=== PATIENT | male | born 1950 ===

== ENCOUNTER 2018-08-10 18:27 | Emergency (ER) | payer MEDICARE ==
[~2018-08-10] VITALS: Ht 175.3 cm; Wt 105.2 kg
[~2018-08-10 18:27] MED LIST: ENAL20 PO; HYDCHL12.5 PO; Hair, Skin & N1 EACH PO; PANT40 PO
[2018-08-10] MEDS ORDERED: AMLO10 (18:49)
[2018-08-10 18:54] LABS: Source, Urine Clean Catch
[2018-08-10 18:58] LABS: BASOPHILS ABSOLUTE AUTO 0.04 K/mm3 (0.00-0.23); BASOPHILS PERCENT AUTO 1 % (0-2); EOSINOPHILS PERCENT AUTO 5 % (0-6); Hematocrit 44.8 % (37.0-53.0); Hemoglobin 15.4 g/dL (13.5-17.5); IMMATURE GRAN ABSOLUTE AUTO 0.02 K/mm3 (0.00-0.10); IMMATURE GRAN PERCENT AUTO 0 % (0-1); LYMPHOCYTES PERCENT AUTO 26 % (21-46); MONOCYTES ABSOLUTE AUTO 0.79 K/mm3 (0.16-1.47); MONOCYTES PERCENT AUTO 10 % (4-13); Mean Corpuscular HGB 32.4 pg (26.0-34.0); Mean Corpuscular HGB Conc 34.4 g/dL (31.5-36.5); Mean Corpuscular Volume 94 fL (80-100); Mean Platelet Volume 9.4 fL (9.1-12.4); NEUTROPHILS ABSOLUTE AUTO 4.89 K/mm3 (1.96-9.15); NEUTROPHILS PERCENT AUTO 59 % (41-73); Platelet Count 297 K/mm3 (150-400); RDW Coefficient Variation 13.2 % (11.7-14.2); RDW Standard Deviation 45.7 fL (35.1-46.3); Red Blood Cell Count 4.76 M/mm3 (4.30-5.90); White Blood Cell Count 8.34 K/mm3 (4.00-11.30)
[2018-08-10 18:58] LABS: Bilirubin, Urine Neg (Neg); Blood, Urine Neg (Neg); Glucose Qualitative, Urine Neg (Neg); Ketones, Urine Neg (Neg); Leukocyte Esterase, Urine Neg (Neg); Nitrite, Urine Neg (Neg); Protein, Urine Neg (Neg); Urobilinogen, Urine NORM (Normal); pH, Urine 6.5 (5.0-8.0)
[2018-08-10 19:00] LABS: Appearance, Urine Clear (Clear); Color, Urine Yellow (P-Yellow)
[2018-08-10 19:25] LABS: Alanine Aminotransfer (ALT/SGP 34 U/L (12-78); Albumin, Blood 3.7 g/dL (3.4-5.0); Albumin/Globulin Ratio 1.2 (0.8-1.8); Alk Phos 91 U/L (50-136); Anion Gap 6 mmol/L (6-16); Aspartate Aminotrans (AST/SGOT 25 U/L (12-37); Bilirubin, Total 0.8 mg/dL (0.1-1.0); Blood Urea Nitrogen 17 mg/dL (8-24); CO2, Blood 27 mmol/L (21-32); Calcium, Blood 8.5 mg/dL (8.5-10.1); Chloride, Blood 104 mmol/L (98-108); Creatinine, Blood 1.21 mg/dL (0.60-1.20); Globulin, Blood 3.2 g/dL (2.2-4.0); Glomerular Filtration Rate >60 (60-); Glucose, Blood 98 mg/dL (70-99); Potassium, Blood 3.4 mmol/L (3.5-5.5); Sodium, Blood 137 mmol/L (136-145); Total Protein, Blood 6.9 g/dL (6.4-8.2)
[2018-08-10] MEDS ORDERED: Percocet 5-3251 EACH PO (21:08)
[2018-08-10] MEDS ORDERED: ONDA4ODT MM (21:08)
== END 2018-08-10 21:31 | disposition home or self-care (01) ==
LOC: ER 18:27
PROVIDERS: Physician Assistant
DX: N13.2 Hydronephrosis with renal and ureteral calculous obstruction (principal); Z79.899 Other long term (current) drug therapy; I10 Essential (primary) hypertension; E78.5 Hyperlipidemia, unspecified
CPT/HCPCS: 36415; 74176; 80053; 81003; 83690; 85025; 96361; 96374; 96375; 96376; 99284-25; A9270-GY; J1170; J1885; J2405; J7030

== ENCOUNTER 2020-01-06 06:59 | Day surgery (SDC) | payer MEDICARE, OTHER ==
[~2020-01-06] VITALS: Ht 170.2 cm; Wt 108.7 kg
[~2020-01-06 06:59] MED LIST changes: +AMLO10; +GLUC500 PO; +MELO7.5 PO; +ONDA4ODT MM; +Percocet 5-3251 EACH PO
--- NOTE | 2020-01-06 07:55 | NUR ---
Ambulatory in Day Surgery. Patient states colon prep results clear. History, Chart, Medications and Allergies reviewed before start of procedure. Lungs clear T/O to Auscultation. Patient confirms NPO status and agrees with scheduled surgery. Patient States Post-Procedure ride home has been arranged.
--- NOTE | 2020-01-06 08:21 | NUR ---
01/06/20 0821 Jose David Jordan 3-LEAD EKG REVIEWED WITH PHYSICIAN PRIOR TO START OF PROCEDURE.Patient to ENDO 1History, Chart, Medications and Allergies reviewed before start of procedure.MONITOR INTACT WITH CONTINUOUS PULSE OXIMETRY AND INTERMITTENT BP.O2 VIA N/C INTACT THROUGHOUT SEDATION/PROCEDURE.
--- NOTE | 2020-01-06 08:56 | NUR ---
Discharge instructions reviewed with patient. Patient verbalizes understanding. Copy given to patient to take home. Patient States Post-Procedure ride home has been arranged. Discharged via wheelchair to private car for ride home.
== END 2020-01-06 08:59 | disposition home or self-care (01) ==
LOC: ORSCMMR 06:59 → ORD 08:00 → ORSCMMR 08:59
PROVIDERS: Internal Medicine Gastroenterology
PROC: 0DJD8ZZ Inspection of Lower Intestinal Tract, Via Natural or Artificial Opening Endoscopic (ICD-10-PCS; principal; 2020-01-06 08:00)
DX: Z12.11 Encounter for screening for malignant neoplasm of colon (principal); Z86.010 Personal history of colon polyps; G47.30 Sleep apnea, unspecified; I10 Essential (primary) hypertension; E78.00 Pure hypercholesterolemia, unspecified; Z79.899 Other long term (current) drug therapy
CPT/HCPCS: J2250; J3010; J7120

== ENCOUNTER 2020-03-18 05:34 | Day surgery (SDC) | payer MEDICARE, OTHER ==
[~2020-03-18] VITALS: Ht 175.3 cm; Wt 114.0 kg
[~2020-03-18 05:34] MED LIST changes: -AMLO10; +AMLO10 PO; +Aspir 8181 MG PO; +OMEP20ER PO; +TADA10TA PO
[2020-03-18] MEDS ORDERED: VITAMIN D310 MC4 PO (06:24)
--- NOTE | 2020-03-18 07:44 | NUR ---
PT BACK TO RECOVERY ROOM POST PROCEDURE. MULTI VESSEL DISEASE FOUND DURING ANGIOGRAM, PT WILL BE REFERED FOR BYPASS SURGERY. SIFE AT BEDSIDE.
--- NOTE | 2020-03-18 08:34 | NUR ---
PT EATING BREAKFAST IN NO DISTRESS. PT AND SPOUSE STATE THAT THEY HAVE DECIDED ON [facility] FOR THE BYPASS SURGERY. DR BE NOTIFIED OF PT DECISION, WILL SET UP REFERRAL FOR BYPASS PROCEDURE.
--- NOTE | 2020-03-18 08:50 | NUR ---
AFTER A TOTAL OF 6 CC'S AIR HAVE BEEN REMOVED FROM TR BAND, SITE BEGAN TO BLEED. ADDITIONAL 4 CC AIR BACK IN BAND TO OBTAIN HEMOSTASIS. PT DENIES ANY DISCOMFORT TO SITE. VSS, SPOUSE REMAINS AT BEDSIDE. CALL LIGHT IN REACH
--- NOTE | 2020-03-18 09:45 | NUR ---
TR BAND HAS BEEN FULLY DEFLATED, NO CURRENT BLEEDING OR SWELLING NOTED. WILL CONTINUE TO MONITOR FOR BLEEDING UNTIL PT IS DC'D HOME.
--- NOTE | 2020-03-18 10:20 | NUR ---
IV DC'D, CATH INTACT. PT AND SPOUSE VERBALIZED UNDERSTANDING OF DC INSTRUCTIONS AND FOLLOW UP INFORMATION. RIGHT RADIAL SITE CLEAN, DRY, INTACT, WITHOUT SWELLING OR BLEEDING AT TIME OF DISCHARGE. PT OUT TO CAR VIA WHEELCHAIR.
== END 2020-03-18 12:21 | disposition home or self-care (01) ==
LOC: MHTC 05:34
PROC: 4A023N7 Measurement of Cardiac Sampling and Pressure, Left Heart, Percutaneous Approach (ICD-10-PCS; principal; 2020-03-18)
PROC: B2111ZZ Fluoroscopy of Multiple Coronary Arteries using Low Osmolar Contrast (ICD-10-PCS; principal; 2020-03-18)
DX: I25.119 Atherosclerotic heart disease of native coronary artery with unspecified angina pectoris (principal); I10 Essential (primary) hypertension; E78.5 Hyperlipidemia, unspecified; G47.33 Obstructive sleep apnea (adult) (pediatric); G89.29 Other chronic pain; M54.9 Dorsalgia, unspecified; M54.2 Cervicalgia; M17.12 Unilateral primary osteoarthritis, left knee; E66.01 Morbid (severe) obesity due to excess calories; Z68.36 Body mass index [BMI] 36.0-36.9, adult; Z79.82 Long term (current) use of aspirin; Z79.899 Other long term (current) drug therapy
CPT/HCPCS: 93454; 99152; 99153; C1769; C1894; J1644; J2250; J3010; J7030; J7050; Q9967

== ENCOUNTER 2020-03-24 07:22 | Observation (INO) | payer MEDICARE, OTHER ==
[~2020-03-24] VITALS: Ht 170.2 cm; Wt 102.1 kg
[~2020-03-24 07:22] MED LIST changes: -AMLO10 PO; -Aspir 8181 MG PO; -HYDCHL12.5 PO; -MELO7.5 PO; -OMEP20ER PO; -TADA10TA PO; +VITAMIN D310 MC4 PO
[2020-03-24 07:52] LABS: BASOPHILS ABSOLUTE AUTO 0.03 K/mm3 (0.00-0.23); BASOPHILS PERCENT AUTO 0 % (0-2); EOSINOPHILS ABSOLUTE AUTO 0.21 K/mm3 (0.00-0.68); EOSINOPHILS PERCENT AUTO 3 % (0-6); Hematocrit 45.5 % (37.0-53.0); Hemoglobin 15.7 g/dL (13.5-17.5); IMMATURE GRAN ABSOLUTE AUTO 0.02 K/mm3 (0.00-0.10); IMMATURE GRAN PERCENT AUTO 0 % (0-1); LYMPHOCYTES ABSOLUTE AUTO 1.22 K/mm3 (0.84-5.20); LYMPHOCYTES PERCENT AUTO 16 % (21-46); MONOCYTES ABSOLUTE AUTO 0.66 K/mm3 (0.16-1.47); MONOCYTES PERCENT AUTO 9 % (4-13); Mean Corpuscular HGB 31.5 pg (26.0-34.0); Mean Corpuscular HGB Conc 34.5 g/dL (31.5-36.5); Mean Corpuscular Volume 91 fL (80-100); Mean Platelet Volume 9.8 fL (9.1-12.4); NEUTROPHILS ABSOLUTE AUTO 5.64 K/mm3 (1.96-9.15); NEUTROPHILS PERCENT AUTO 72 % (41-73); Platelet Count 254 K/mm3 (150-400); RDW Coefficient Variation 13.1 % (11.7-14.2); RDW Standard Deviation 43.8 fL (35.1-46.3); Red Blood Cell Count 4.98 M/mm3 (4.30-5.90); White Blood Cell Count 7.78 K/mm3 (4.00-11.30)
[2020-03-24 08:13] LABS: Alanine Aminotransfer (ALT/SGP 25 U/L (12-78); Albumin, Blood 3.8 g/dL (3.4-5.0); Albumin/Globulin Ratio 1.2 (0.8-1.8); Alk Phos 88 U/L (50-136); Anion Gap 5 mmol/L (6-16); Aspartate Aminotrans (AST/SGOT 14 U/L (12-37); Bilirubin, Total 1.3 mg/dL (0.1-1.0); Blood Urea Nitrogen 12 mg/dL (8-24); Bun/Creatinine Ratio 11.2 (12.0-20.0); CO2, Blood 26 mmol/L (21-32); Calcium, Blood 8.4 mg/dL (8.5-10.1); Chloride, Blood 109 mmol/L (98-108); Creatinine, Blood 1.07 mg/dL (0.60-1.20); Globulin, Blood 3.3 g/dL (2.2-4.0); Glomerular Filtration Rate >60 (60-); Glucose, Blood 99 mg/dL (70-99); Potassium, Blood 3.8 mmol/L (3.5-5.5); Sodium, Blood 140 mmol/L (136-145); Total Protein, Blood 7.1 g/dL (6.4-8.2)
[2020-03-24 08:55] LABS: CHOL/HDL RATIO 3.4; Cholesterol 118 mg/dL (50-200); HDL Cholesterol 35 mg/dL (>39); LDL/HDL RATIO 1.9; Low Density Lipoprotein Chol 65 mg/dL (0-110); Triglycerides 91 mg/dL (30-160); Very Low Density Lipoprot Chol 18 mg/dL (6-32)
[2020-03-24] MEDS ORDERED: OMEP20ER PO (12:21)
[2020-03-24] MEDS ORDERED: MOBIC15 MG PO (12:21)
[2020-03-24] MEDS ORDERED: HYDCHL25 PO (12:21)
[2020-03-24] MEDS ORDERED: AMLO10 PO (12:21)
[2020-03-24] MEDS ORDERED: METO25ER PO (12:22)
[2020-03-24] MEDS ORDERED: ATOR40TA PO (12:22)
[2020-03-24] MEDS ORDERED: ASPI81CH PO (12:24)
[2020-03-24] MEDS ORDERED: TADALAFIL5 M1 PO (12:25)
[2020-03-24] MEDS ORDERED: [UNRECOGNIZED DRUG - CODE] (18:43)
[2020-03-24] MEDS ORDERED: LIVER REFRESH PO (18:51)
[2020-03-24] MEDS ORDERED: ASHWAGANDHA PO (18:53)
[2020-03-24] MEDS ORDERED: [UNRECOGNIZED DRUG - OTHER] PO (18:54)
[2020-03-24] MEDS ORDERED: COQ-10100 MG PO (18:55)
[2020-03-24] MEDS ORDERED: CURCUMIN PO (18:55)
[2020-03-24] MEDS ORDERED: HYALURONIC ACID PO (18:58)
[2020-03-24] MEDS ORDERED: VITAMIN D3 PO (18:59)
[2020-03-24] MEDS ORDERED: [UNRECOGNIZED DRUG - OTHER] PO (19:02)
[2020-03-24] MEDS ORDERED: GLUCOSAMINE-CH1 EAC7 PO (19:03)
[2020-03-24] MEDS ORDERED: OMEGA ESSENTIA240 ML PO (19:05)
[2020-03-25 06:18] LABS: Anion Gap 5 mmol/L (6-16); Blood Urea Nitrogen 14 mg/dL (8-24); CO2, Blood 28 mmol/L (21-32); Calcium, Blood 8.5 mg/dL (8.5-10.1); Chloride, Blood 107 mmol/L (98-108); Creatinine, Blood 1.17 mg/dL (0.60-1.20); Glomerular Filtration Rate >60 (60-); Glucose, Blood 90 mg/dL (70-99); Sodium, Blood 140 mmol/L (136-145)
[2020-03-25] MEDS ORDERED: Vitamin D2000 UNIT PO (16:42)
[2020-03-25] MEDS ORDERED: CLOP75 PO (16:43)
== END 2020-03-25 17:13 | disposition home or self-care (01) ==
LOC: ER 07:22 → MEDS 07:23 → ER 11:07 → MEDS 11:07 → ENPENDDIS 03-25 16:58 → MEDS 03-25 17:13
PROVIDERS: Emergency Medicine; Nurse Practitioner Acute Care; ADMIT Hospitalist
DX: I97.820 Postprocedural cerebrovascular infarction following cardiac surgery (principal); I63.119 Cerebral infarction due to embolism of unspecified vertebral artery; G81.91 Hemiplegia, unspecified affecting right dominant side; R13.10 Dysphagia, unspecified; R29.810 Facial weakness; I10 Essential (primary) hypertension; I25.10 Atherosclerotic heart disease of native coronary artery without angina pectoris; E78.5 Hyperlipidemia, unspecified; G47.33 Obstructive sleep apnea (adult) (pediatric); K21.9 Gastro-esophageal reflux disease without esophagitis; M19.90 Unspecified osteoarthritis, unspecified site; E66.01 Morbid (severe) obesity due to excess calories; Z68.35 Body mass index [BMI] 35.0-35.9, adult; Z98.1 Arthrodesis status; Z79.82 Long term (current) use of aspirin; Z79.02 Long term (current) use of antithrombotics/antiplatelets; Z79.899 Other long term (current) drug therapy; Z87.442 Personal history of urinary calculi; Z23 Encounter for immunization; Z20.828 Contact with and (suspected) exposure to other viral communicable diseases; Y83.8 Other surgical procedures as the cause of abnormal reaction of the patient, or of later complication, without mention of misadventure at the time of the procedure; Y71.0 Diagnostic and monitoring cardiovascular devices associated with adverse incidents
CPT/HCPCS: 36415; 70450; 70496; 70498; 70551; 80048; 80053; 80061; 82947; 83036; 85025; 92610; 93005; 93010; 93308; 93321; 94762; 97162; 99285-25; A9270-GY; J1650; J7030; Q2038; Q9967

== ENCOUNTER → 2022-04-16 | Outpatient (CLI) | payer MEDICARE, OTHER ==
[~2022-04-16] MED LIST changes: +AMLO10 PO; +ASHWAGANDHA PO; +ASPI81CH PO; +ATOR40TA PO; +CLOP75 PO; +COQ-10100 MG PO; +CURCUMIN PO; +GLUCOSAMINE-CH1 EAC7 PO; +HYALURONIC ACID PO; +HYDCHL25 PO; +LIVER REFRESH PO; +METO25ER PO; +MOBIC15 MG PO; +OMEGA ESSENTIA240 ML PO; +OMEP20ER PO; +TADALAFIL5 M1 PO; +VITAMIN D3 PO; +Vitamin D2000 UNIT PO; +[UNRECOGNIZED DRUG - CODE]; +[UNRECOGNIZED DRUG - OTHER] PO; +[UNRECOGNIZED DRUG - OTHER] PO
== END ==
LOC: LAB SHORT 12:06 → PLD 12:06
DX: D48.5 Neoplasm of uncertain behavior of skin (principal)
CPT/HCPCS: 88305

== ENCOUNTER 2023-01-06 02:43 | Emergency (ER) | payer MEDICARE, OTHER ==
[~2023-01-06] VITALS: Ht 172.7 cm; Wt 113.4 kg
[2023-01-06 03:56] LABS: BASOPHILS ABSOLUTE AUTO 0.04 K/mm3 (0.00-0.23); BASOPHILS PERCENT AUTO 0 % (0-2); EOSINOPHILS ABSOLUTE AUTO 0.33 K/mm3 (0.00-0.68); EOSINOPHILS PERCENT AUTO 3 % (0-6); Hematocrit 45.4 % (37.0-53.0); Hemoglobin 15.5 g/dL (13.5-17.5); IMMATURE GRAN ABSOLUTE AUTO 0.02 K/mm3 (0.00-0.10); IMMATURE GRAN PERCENT AUTO 0 % (0-1); LYMPHOCYTES ABSOLUTE AUTO 1.32 K/mm3 (0.84-5.20); LYMPHOCYTES PERCENT AUTO 13 % (21-46); MONOCYTES ABSOLUTE AUTO 1.21 K/mm3 (0.16-1.47); MONOCYTES PERCENT AUTO 12 % (4-13); Mean Corpuscular HGB 32.6 pg (26.0-34.0); Mean Corpuscular HGB Conc 34.1 g/dL (31.5-36.5); Mean Corpuscular Volume 96 fL (80-100); Mean Platelet Volume 10.1 fL (9.1-12.4); NEUTROPHILS ABSOLUTE AUTO 7.03 K/mm3 (1.96-9.15); NEUTROPHILS PERCENT AUTO 71 % (41-73); Platelet Count 206 K/mm3 (150-400); RDW Coefficient Variation 13.6 % (11.7-14.2); RDW Standard Deviation 48.1 fL (35.1-46.3); Red Blood Cell Count 4.75 M/mm3 (4.30-5.90); White Blood Cell Count 9.95 K/mm3 (4.00-11.30)
[2023-01-06 04:13] LABS: Albumin, Blood 3.4 g/dL (3.4-5.0); Albumin/Globulin Ratio 1.1 (0.8-1.8); Bun/Creatinine Ratio 15.2 (12.0-20.0); Creatinine, Blood 1.32 mg/dL (0.60-1.20); Globulin, Blood 3.1 g/dL (2.2-4.0); Potassium, Blood 4.4 mmol/L (3.5-5.5); Total Protein, Blood 6.5 g/dL (6.4-8.2)
[2023-01-06 06:06] LABS: Source, Urine Clean Catch
[2023-01-06 06:33] LABS: Appearance, Urine Clear (Clear); Bilirubin, Urine Neg (Neg); Blood, Urine 3+ (Neg); Color, Urine Yellow (P-Yellow); Glucose Qualitative, Urine Neg (Neg); Ketones, Urine Neg (Neg); Leukocyte Esterase, Urine Neg (Neg); Nitrite, Urine Neg (Neg); Protein, Urine Neg (Neg); Specific Gravity, Urine 1.015 (1.003-1.022); Urobilinogen, Urine NORM (Normal)
[2023-01-06 06:50] LABS: Amorphous Light (0-Heavy); Bacteria Rare /hpf; Mucus Light (0-Heavy); Squamous Epithelial Cells Few /hpf (Few); White Blood Cells, Urine 0-2 /hpf (0-5)
[2023-01-06] MEDS ORDERED: TAMS.4ER PO (07:36)
[2023-01-06] MEDS ORDERED: Percocet 5-3251 EACH PO (07:36)
[2023-01-06 08:00] VITALS: BP 158/86
== END 2023-01-06 08:07 | disposition home or self-care (01) ==
LOC: ER 02:43
PROVIDERS: Student in an Organized Health Care Education/Training Program
DX: N13.2 Hydronephrosis with renal and ureteral calculous obstruction (principal); I10 Essential (primary) hypertension; E78.5 Hyperlipidemia, unspecified; G47.30 Sleep apnea, unspecified; I25.10 Atherosclerotic heart disease of native coronary artery without angina pectoris
CPT/HCPCS: 74177; 80053; 81001; 85025; 96361; 96374-59; 99284-25; J1885; J7030; Q9967

== ENCOUNTER → 2023-01-09 | Outpatient (CLI) | payer MEDICARE, OTHER ==
[~2023-01-09] MED LIST changes: +TAMS.4ER PO
[2023-01-09 13:19] LABS: PSA, %Free 41.1 %; PSA, Free 0.432 ng/mL
== END ==
LOC: LAB 11:35 → LAB SHORT 11:35
PROVIDERS: Physician Assistant
DX: N40.0 Benign prostatic hyperplasia without lower urinary tract symptoms (principal)
CPT/HCPCS: 36415; 84153; 84154

== ENCOUNTER → 2023-05-07 | Outpatient (CLI) | payer MEDICARE, OTHER | LOC: PLD 09:54 → LAB SHORT 09:54 | DX: D48.5 Neoplasm of uncertain behavior of skin (principal) | CPT/HCPCS: 88305 ==

== ENCOUNTER → 2023-12-31 | Outpatient (CLI) | payer MEDICARE, OTHER | END | disposition home or self-care (01) | LOC: LAB SHORT 17:03 → LAB 17:03 | DX: L08.0 Pyoderma (principal) | CPT/HCPCS: 87070; 87186; 87205 ==

== ENCOUNTER 2025-03-31 09:06 | Day surgery (SDC) | payer MEDICARE, OTHER ==
[~2025-03-31] VITALS: Ht 172 cm; Wt 122.0 kg
[~2025-03-31 09:06] MED LIST changes: +LOSA25 PO
[2025-03-31 10:20] VITALS: BP 154/91
--- NOTE | 2025-03-31 10:34 | NUR ---
03/31/25 1034 Becca Umana History, Chart, Medications and Allergies reviewed before start of procedure. dr mcnamara providing anesthesai
--- NOTE | 2025-03-31 10:36 | NUR ---
Ambulatory in Day Surgery History, Chart, Medications and Allergies reviewed before start of procedure.Patient confirms NPO status and agrees with scheduled surgery. Patient states colon prep results clear. Patient States Post-Procedure ride home has been arranged.
[2025-03-31 11:09] VITALS: BP 126/74
[2025-03-31 11:17] VITALS: BP 139/90
== END 2025-03-31 23:00 | disposition home or self-care (01) ==
LOC: ORSCMMR 09:06 → ORD 10:30 → ORSCMMR 10:30
PROVIDERS: Internal Medicine Gastroenterology
PROC: 0DBM8ZX Excision of Descending Colon, Via Natural or Artificial Opening Endoscopic, Diagnostic (ICD-10-PCS; principal; 2025-03-31 10:30)
PROC: 0DBH8ZX Excision of Cecum, Via Natural or Artificial Opening Endoscopic, Diagnostic (ICD-10-PCS; principal; 2025-03-31 10:30)
DX: Z12.11 Encounter for screening for malignant neoplasm of colon (principal); K63.5 Polyp of colon; D12.0 Benign neoplasm of cecum; K57.30 Diverticulosis of large intestine without perforation or abscess without bleeding; Z86.0100 Personal history of colon polyps, unspecified; I25.10 Atherosclerotic heart disease of native coronary artery without angina pectoris; I10 Essential (primary) hypertension; G47.33 Obstructive sleep apnea (adult) (pediatric); K21.9 Gastro-esophageal reflux disease without esophagitis; E66.01 Morbid (severe) obesity due to excess calories; Z68.41 Body mass index [BMI] 40.0-44.9, adult; Z86.73 Personal history of transient ischemic attack (TIA), and cerebral infarction without residual deficits; Z79.82 Long term (current) use of aspirin; Z79.899 Other long term (current) drug therapy
CPT/HCPCS: 88305; J2704; J7120